=== PATIENT | female | born 1945 | race Caucasian/White ===

== ENCOUNTER 2021-12-01 11:22 | Emergency (ER) | payer MEDICARE, OTHER ==
[~2021-12-01] VITALS: Ht 175.3 cm; Wt 74.1 kg
[2021-12-01 11:25] VITALS: BP 153/69
== END 2021-12-01 14:17 | disposition home or self-care (01) ==
LOC: ER 11:22
DX: S62.114A Nondisplaced fracture of triquetrum [cuneiform] bone, right wrist, initial encounter for closed fracture (principal); S92.334A Nondisplaced fracture of third metatarsal bone, right foot, initial encounter for closed fracture; M25.531 Pain in right wrist; X58.XXXA Exposure to other specified factors, initial encounter; Y93.89 Activity, other specified; Y92.89 Other specified places as the place of occurrence of the external cause; Y99.8 Other external cause status
CPT/HCPCS: 29125; 73110; 73610; 73630; 99284